=== PATIENT | male | born 1965 | race Caucasian/White ===

== ENCOUNTER 2018-09-09 14:54 | Emergency (ER) | payer BC ==
[2018-09-09 15:18] LABS: Glucose,Whole Blood 139 mg/dL (75-99)
[2018-09-09 15:21] VITALS: RESP 24
[2018-09-09] MEDS ORDERED: SODIUM CHLORIDE 0.9% 1,000 ML IV STA (15:23)
--- NOTE | 2018-09-09 15:27 | ED ---
General Adult HPI - General Chief complaint: Neuro Symptoms/Deficit Stated complaint: Poss cva Time Seen by Provider: 09/09/18 15:13 Source: patient, EMS, RN notes reviewed Mode of arrival: EMS Limitations: no limitations - History of Present Illness Initial comments: Patient is a pleasant 52-year-old male presenting to the emergency department with concerns for speech problems. Patient states he woke up around 7 and was feeling fine at that point. Patient did go to the bathroom and had some difficulty. Patient did have a headache that started after he awoke and has progressively worsened since that time. Headache is moderate at this time. Hal briones has noticed slurred speech over the past several hours. Patient is unclear if he had slurred speech when he woke because he did not talk and then took a nap after that time. Patient feels weak in general and is on clear of any isolated area of weakness. Patient states he does have some tingling, mostly in his face. No history of similar symptoms previously. Patient has known history of hypertension however does not take his blood pressure medications because he cannot swallow a pill and does not like the taste of chewing pills. - Related Data Allergies Allergy/AdvReac Type Severity Reaction Status Date / Time morphine AdvReac Nausea Verified 09/09/18 15:29 Review of Systems ROS Statement: Those systems with pertinent positive or pertinent negative responses have been documented in the HPI. ROS Other: All systems not noted in ROS Statement are negative. Constitutional: Denies: fever Eyes: Denies: eye pain ENT: Denies: ear pain Respiratory: Denies: cough Cardiovascular: Denies: chest pain Endocrine: Reports: fatigue Gastrointestinal: Denies: abdominal pain Genitourinary: Denies: dysuria Musculoskeletal: Denies: back pain Skin: Denies: rash Neurological: Reports: headache, weakness, paresthesias, abnormal gait. Denies: confusion, vertigo Past Medical History Past Medical History: Hypertension History of Any Multi-Drug Resistant Organisms: None Reported Past Surgical History: No Surgical Hx Reported Past Psychological History: Depression Smoking Status: Never smoker Past Alcohol Use History: None Reported Past Drug Use History: None Reported General Exam General appearance: alert, in no apparent distress Head exam: Present: atraumatic Eye exam: Present: normal appearance, PERRL, EOMI, nystagmus ENT exam: Present: normal oropharynx Neck exam: Present: normal inspection Respiratory exam: Present: normal lung sounds bilaterally Cardiovascular Exam: Present: regular rate, normal rhythm Expanded Peripheral pulses: 2+: Radial (R), Radial (L), Dorsalis Pedis (R), Dorsalis Pedis (L) GI/Abdominal exam: Present: soft. Absent: tenderness Extremities exam: Present: normal inspection. Absent: pedal edema, calf tend erness Neurological exam: Present: alert, oriented X3, CN II-XII intact (Horizontal nystagmus is present.) Expanded Neurological exam: Present: protecting the airway, other (Bilateral horizontal nystagmus. Patient denies dizziness during eval. Patient has significant slurred speech.) Patient oriented to: Present: person, place, time Cranial nerves: EOM's Intact: Normal, Facial Sensation: Normal Cerebellar function: Finger to Nose: Normal Sensory exam: Upper Extremity Light Touch: Normal, Lower Extremity Light Touch: Normal Motor strength exam: RUE: 5, LUE: 5, RLE: 4, LLE: 5 Eye Response: (4) open spontaneously Motor Response: (6) obeys commands Verbal Response: (5) oriented Psychiatric exam: Present: normal affect, normal mood Skin exam: Present: normal color Course Vital Signs 09/09/18 09/09/18 09/09/18 15:01 15:25 15:40 Temperature 98.4 F Pulse Rate 65 84 80 Respiratory 24 24 24 Rate Blood Pressure 176/120 187/115 185/125 O2 Sat by Pulse 97 98 96 Oximetry 09/09/18 09/09/18 15:55 16:10 Temperature Pulse Rate 80 80 Respiratory 24 24 Rate Blood Pressure 159/131 168/143 O2 Sat by Pulse 96 94 L Oximetry - Reevaluation(s) Reevaluation #1: 09/09/18 15:50 Case was discussed with Dr. Vivas, interventional neurologist and films were reviewed. He does have concern for brainstem hemorrhage. He does recommend labetalol and Cardene to get systolic blood pressure under 160 and then transfer to [facility]. Patient reevaluated and unchanged. Patient is updated. Friend is also present who is aware. Friend is attempting to get in touch with sister. 09/09/18 15:52 Case was also discussed with Dr. [place], [facility], who will accept transfer. Blood pressure at this time as 192/114. Heart rate 82. First dose labetalol has been ordered. Cardiac will be ordered. 09/09/18 16:17 Patient again reevaluated and again updated. Additional dose of Trandate ordered. Cardene has arrived and is about to be started. EMS was notified. 09/09/18 16:29 Blood pressure now improved to 153/99 EKG Findings - EKG Comments: EKG Findings:: Normal sinus rhythm 85. CT 144. QRS 80. QT 382. QTC 454. Normal axis. Normal QRS. No acute ST change. Medical Decision Making - Lab Data Result diagrams: 09/09/18 15:08 09/09/18 15:08 Lab Results 09/09/18 09/09/18 09/09/18 Range/Units 15:08 15:08 15:08 WBC 9.6 (3.8-10.6) k/uL RBC 5.00 (4.30-5.90) m/uL Hgb 15.4 (13.0-17.5) gm/dL Hct 45.1 (39.0-53.0) % MCV 90.3 (80.0-100.0) fL MCH 30.9 (25.0-35.0) pg MCHC 34.2 (31.0-37.0) g/dL RDW 13.7 (11.5-15.5) % Plt Count 201 (150-450) k/uL Neutrophils % 86 % Lymphocytes % 10 % Monocytes % 3 % Eosinophils % 1 % Basophils % 0 % Neutrophils # 8.2 H (1.3-7.7) k/uL Lymphocytes # 0.9 L (1.0-4.8) k/uL Monocytes # 0.3 (0-1.0) k/uL Eosinophils # 0.1 (0-0.7) k/uL Basophils # 0.0 (0-0.2) k/uL PT (9.0-12.0) sec INR (<1.2) APTT (22.0-30.0) sec Sodium 139 (137-145) mmol/L Potassium 4.8 (3.5-5.1) mmol/L Chloride 107 (98-107) mmol/L Carbon Dioxide 21 L (22-30) mmol/L Anion Gap 11 mmol/L BUN 9 (9-20) mg/dL Creatinine 0.67 (0.66-1.25) mg/dL Est GFR (CKD-EPI)AfAm >90 (>60 ml/min/1.73 sqM) Est GFR (CKD-EPI)NonAf >90 (>60 ml/min/1.73 sqM) Glucose 145 H (74-99) mg/dL POC Glucose (mg/dL) (75-99) mg/dL POC Glu Laboratory Animal Care Veterinarian ID Calcium 9.1 (8.4-10.2) mg/dL Total Bilirubin 1.3 (0.2-1.3) mg/dL AST 87 H (17-59) U/L ALT 22 (21-72) U/L Alkaline Phosphatase 113 (38-126) U/L Total Creatine Kinase 134 (55-170) U/L CK-MB (CK-2) 1.8 (0.0-2.4) ng/mL CK-MB (CK-2) Rel Index 1.3 Troponin I <0.012 (0.000-0.034) ng/mL Total Protein 8.1 (6.3-8.2) g/dL Albumin 4.5 (3.5-5.0) g/dL 09/09/18 09/09/18 Range/Units 15:08 15:16 WBC (3.8-10.6) k/uL RBC (4.30-5.90) m/uL Hgb (13.0-17.5) gm/dL Hct (39.0-53.0) % MCV (80.0-100.0) fL MCH (25.0-35.0) pg MCHC (31.0-37.0) g/dL RDW (11.5-15.5) % Plt Count (150-450) k/uL Neutrophils % % Lymphocytes % % Monocytes % % Eosinophils % % Basophils % % Neutrophils # (1.3-7.7) k/uL Lymphocytes # (1.0-4.8) k/uL Monocytes # (0-1.0) k/uL Eosinophils # (0-0.7) k/uL Basophils # (0-0.2) k/uL PT 9.9 (9.0-12.0) sec INR 0.9 (<1.2) APTT 21.9 L (22.0-30.0) sec Sodium (137-145) mmol/L Potassium (3.5-5.1) mmol/L Chloride (98-107) mmol/L Carbon Dioxide (22-30) mmol/L Anion Gap mmol/L BUN (9-20) mg/dL Creatinine (0.66-1.25) mg/dL Est GFR (CKD-EPI)AfAm (>60 ml/min/1.73 sqM) Est GFR (CKD-EPI)NonAf (>60 ml/min/1.73 sqM) Glucose (74-99) mg/dL POC Glucose (mg/dL) 139 H (75-99) mg/dL POC Glu Laboratory Animal Care Veterinarian ID Roney Colunga Calcium (8.4-10.2) mg/dL Total Bilirubin (0.2-1.3) mg/dL AST (17-59) U/L ALT (21-72) U/L Alkaline Phosphatase (38-126) U/L Total Creatine Kinase (55-170) U/L CK-MB (CK-2) (0.0-2.4) ng/mL CK-MB (CK-2) Rel Index Troponin I (0.000-0.034) ng/mL Total Protein (6.3-8.2) g/dL Albumin (3.5-5.0) g/dL - Radiology Data Radiology results: report reviewed (CT angiogram of the head and neck shows no evidence of aneurysm or embolism. No dissection. Hemorrhage is present.), image reviewed (Computed tomography scan of brain shows hemorrhage of the brain stem. There may be a subarachnoid component. This was discussed with radiologist, Dr. Jimenez. Chest x-ray shows cardiac megaly.) Critical Care Time Critical Care Time: Yes Total Critical Care Time: 55 Disposition Clinical Impression: Brainstem hemorrhage, Hypertensive emergency Disposition: OTHER INSTITUTION NOT DEFINED Condition: Critical Is patient prescribed a controlled substance at d/c from ED?: No Referrals: None,Stated [Primary Care Provider] - 1-2 days Time of Disposition: 16:30 - Out of Hospital Transfer - Req. Specs Out of Hospital Transfer - Requested Specifics: Other Emergency Center
[2018-09-09 15:43] LABS: Basophils % (A) 0 %; Eosinophils # (A) 0.1 k/uL (0-0.7); Eosinophils % (A) 1 %; HCT 45.1 % (39.0-53.0); HGB 15.4 gm/dL (13.0-17.5); Lymphocytes # (A) 0.9 k/uL (1.0-4.8); Lymphocytes % (A) 10 %; MCH 30.9 pg (25.0-35.0); MCHC 34.2 g/dL (31.0-37.0); MCV 90.3 fL (80.0-100.0); Mean Platelet Volume 6.9; Monocytes # (A) 0.3 k/uL (0-1.0); Monocytes % (A) 3 %; Neutrophils # (A) 8.2 k/uL (1.3-7.7); Neutrophils % (A) 86 %; Platelet Count 201 k/uL (150-450); RDW 13.7 % (11.5-15.5); WBC 9.6 k/uL (3.8-10.6)
[2018-09-09 15:52] LABS: ALT 22 U/L (21-72); AST 87 U/L (17-59); African American GFR (CKD) >90 (>60 ml/min/1.73 sqM); Albumin 4.5 g/dL (3.5-5.0); Alkaline Phosphatase 113 U/L (38-126); Anion Gap 11 mmol/L; Blood Urea Nitrogen 9 mg/dL (9-20); Calcium 9.1 mg/dL (8.4-10.2); Carbon Dioxide 21 mmol/L (22-30); Chloride 107 mmol/L (98-107); Glucose 145 mg/dL (74-99); Sodium 139 mmol/L (137-145); Total Bilirubin 1.3 mg/dL (0.2-1.3); Total Protein 8.1 g/dL (6.3-8.2)
[2018-09-09] MEDS ORDERED: niCARdipine 20 MG in SODIUM CHLORIDE 0.9% 192 ML IV ONE (15:53)
[2018-09-09] MEDS ORDERED: levETIRAcetam IV 1,000 MG in SALINE 1 100ML.BAG IVPB STA (15:54)
[2018-09-09 15:59] LABS: Creatine Kinase 134 U/L (55-170)
[2018-09-09] MEDS ORDERED: LABETALOL SYRINGE 5 MG/ML IVP STA ×2 (15:59→16:13)
[2018-09-09 16:01] LABS: Potassium 4.8 mmol/L (3.5-5.1)
[2018-09-09 16:04] LABS: INR 0.9 (<1.2); Partial Thromboplastin Time 21.9 sec (22.0-30.0); Prothrombin Time 9.9 sec (9.0-12.0)
--- NOTE | 2018-09-09 16:04 | CT ---
EXAMINATION TYPE: CT brain wo con for TPA DATE OF EXAM: 09/09/2018 COMPARISON: None HISTORY: Neuro deficits with fall CT DLP: 1449 mGycm Automated exposure control for dose reduction was used. Helical acquisition through the brain. FINDINGS: Abnormal increased attenuation is present involving the left portion of the sarahi, there is some exten karthikeyan towards the cerebellopontine angle, cerebellopontine angle and left internal auditory canal, dilcia roximately 2 cm in AP dimension by 2.5 cm transverse dimension. No evident hydrocephalus. Cerebral va scular calcifications are present. No significant mass effect. Calvarium is intact. IMPRESSION: PARENCHYMAL HEMORRHAGE, THERE MAY BE A LOCAL SUBARACHNOID COMPONENT.
[2018-09-09 16:12] LABS: Creatine Kinase MB 1.8 ng/mL (0.0-2.4); Troponin I <0.012 ng/mL (0.000-0.034)
--- NOTE | 2018-09-09 16:18 | CT ---
EXAMINATION TYPE: CT angio head neck DATE OF EXAM: 09/09/2018 HISTORY: Fall this morning. COMPARISON: CT brain same date CT DLP: 2392.1 mGycm. Automated Exposure Control for Dose Reduction was Utilized. TECHNIQUE: CTA scan of the neck is performed with IV Contrast, patient injected with 50 mL of Isovue 370, axial images are obtained, coronal and sagittal reformatted images are reviewed. Three-D recons tructed images are created on an independent workstation and reviewed. FINDINGS: Carotid/Vascular Structures: Patent common carotid, transverse aorta, left and right subclavian, inte rnal and external carotid arteries, vertebral arteries. No evident embolus or dissection. Mild athero matous change present in the carotid bifurcations. [place] of [place] shows anterior and posterior circulation to be patent. No evident aneurysm or dissec tion. Other: Patient's hemorrhage as described in CT report of the brain same date is noted incidentally IMPRESSION: No evident aneurysm or embolus. No dissection. Hemorrhage as described.
--- NOTE | 2018-09-09 16:24 | XR ---
EXAMINATION TYPE: XR chest 1V portable DATE OF EXAM: 09/09/2018 COMPARISON: NONE HISTORY: Altered mental status, cerebrovascular accident TECHNIQUE: Single frontal view of the chest is obtained. FINDINGS: There is no focal air space opacity, pleural effusion, or pneumothorax seen. The cardiac silhouette size is enlarged. The osseous structures are intact. Patient is rotated. There are overlyi ng cardiac leads. IMPRESSION: Cardiomegaly.
[2018-09-09 16:31] VITALS: TEMP 97.7
[2018-09-09] MEDS ORDERED: METOCLOPRAMIDE 5 MG/ML 2 ML VIAL IVP STA (16:33)
[2018-09-09 16:43] VITALS: BP 127/105; PULSE 80
== END 2018-09-09 16:44 | disposition short-term general hospital (02) ==
LOC: EC 14:54
DX: I61.3 Nontraumatic intracerebral hemorrhage in brain stem (principal); R47.81 Slurred speech; I16.1 Hypertensive emergency; I51.7 Cardiomegaly; Z88.5 Allergy status to narcotic agent
CPT/HCPCS: 36415; 93005; 80053; 82550; 82553; 84484; 85025; 85610; 85730; 71045; 70496; 70450; 70498; 99291; 96365; 96368; 96375 ×2; J2765; J1953; Q9967

== ENCOUNTER 2019-09-22 14:50 | Inpatient (IN) | payer BC, MEDICAID, OTHER ==
[2019-09-22] MEDS ORDERED: SODIUM CHLORIDE 0.9% 1,000 ML IV STA (16:24)
[2019-09-22 16:42] LABS: Basophils # (A) 0.1 k/uL (0-0.2); Basophils % (A) 0 %; Eosinophils # (A) 0.3 k/uL (0-0.7); Eosinophils % (A) 2 %; HCT 46.5 % (39.0-53.0); HGB 15.6 gm/dL (13.0-17.5); Lymphocytes # (A) 1.4 k/uL (1.0-4.8); Lymphocytes % (A) 10 %; MCH 31.3 pg (25.0-35.0); MCHC 33.6 g/dL (31.0-37.0); MCV 93.3 fL (80.0-100.0); Mean Platelet Volume 7.5; Monocytes # (A) 0.8 k/uL (0-1.0); Monocytes % (A) 6 %; Neutrophils # (A) 11.5 k/uL (1.3-7.7); Neutrophils % (A) 81 %; Platelet Count 257 k/uL (150-450); RBC 4.98 m/uL (4.30-5.90); RDW 13.5 % (11.5-15.5); WBC 14.1 k/uL (3.8-10.6)
--- NOTE | 2019-09-22 16:48 | XR ---
EXAMINATION TYPE: XR chest 2V DATE OF EXAM: 09/22/2019 COMPARISON: Chest x-ray September 09, 2018 HISTORY: Weakness and fall. TECHNIQUE: Frontal and lateral views of the chest are obtained. FINDINGS: Osseous structures are demineralized. Advanced degenerative change bilateral glenohumeral joints. Deformity right humeral head. Cardiomegaly is seen with central vascular congestion and small bilateral pleural effusions. No pneumothorax noted bilaterally. Atherosclerotic thoracic aorta noted . IMPRESSION: Correlate for CHF exacerbation as there is cardiomegaly with central vascular congestion and small bilateral pleural effusions.
[2019-09-22 16:51] LABS: Albumin 4.9 g/dL (3.5-5.0); Calcium 9.5 mg/dL (8.4-10.2); Magnesium 2.2 mg/dL (1.6-2.3); Potassium 4.9 mmol/L (3.5-5.1); Total Bilirubin 0.7 mg/dL (0.2-1.3); Total Protein 8.6 g/dL (6.3-8.2)
[2019-09-22 16:53] LABS: Appearance,Urine Cloudy (Clear); Bacteria,Urine Rare /hpf; Bilirubin,Urine Negative (Negative); Blood,Urine Negative (Negative); Color,Urine Yellow; Glucose,Urine (UA) Negative (Negative); Hyaline Casts,Urine 147 /lpf (0-2); Ketones,Urine Negative (Negative); Leukocyte Esterase,Urine Negative (Negative); Mucus,Urine Occasional /hpf; Nitrite,Urine Negative (Negative); Protein,Urine 1+ (Negative); RBC,Urine 2 /hpf (0-5); Specific Gravity,Urine 1.024 (1.001-1.035); Squamous Epithelial Cell,Urine <1 /hpf (0-4); Urobilinogen,Urine <2.0 mg/dL (<2.0); WBC,Urine 2 /hpf (0-5)
[2019-09-22 17:15] LABS: Partial Thromboplastin Time 21.8 sec (22.0-30.0); Prothrombin Time 9.9 sec (9.0-12.0)
[2019-09-22] MEDS: SODIUM CHLORIDE 0.9% 1,000 ML IV SCH (17:55)
[2019-09-22] MEDS ORDERED: NALOXONE 0.4 MG/ML 1 ML VIAL IV PRN (18:08)
[2019-09-22] MEDS ORDERED: ACETAMINOPHEN TAB 325 MG TAB PO PRN (18:08)
--- NOTE | 2019-09-22 18:15 | ED ---
General Adult HPI - General Chief complaint: Weakness Stated complaint: weakness,sore Time Seen by Provider: 09/22/19 16:11 Source: patient, RN notes reviewed, old records reviewed Mode of arrival: ambulatory Limitations: no limitations - History of Present Illness Initial comments: 53-year-old male presenting for evaluation of near-syncope, dehydration. Patient was working in a very hot environment, had been sweating profusely, became lightheaded, pale. He was encouraged by coworkers to present to the emergency department for evaluation. He denies chest pain or dyspnea. Denies nausea vomiting. He has a history of CVA. No history of CAD, or congestive heart failure. No focal numbness or weakness. No headache. - Related Data Home Medications Medication Instructions Recorded Confirmed Atorvastatin [Lipitor] 40 mg PO HS 09/22/19 09/22/19 Baclofen [Lioresal] 10 mg PO HS PRN 09/22/19 09/22/19 Carvedilol [Coreg] 12.5 mg PO BID 09/22/19 09/22/19 Lisinopril [Zestril] 40 mg PO DAILY 09/22/19 09/22/19 Allergies Allergy/AdvReac Type Severity Reaction Status Date / Time morphine AdvReac Nausea Verified 09/22/19 18:00 Review of Systems ROS Statement: Those systems with pertinent positive or pertinent negative responses have been documented in the HPI. ROS Other: All systems not noted in ROS Statement are negative. Past Medical History Past Medical History: CVA/TIA, Hypertension History of Any Multi-Drug Resistant Organisms: None Reported Past Surgical History: No Surgical Hx Reported Past Psychological History: No Psychological Hx Reported Smoking Status: Never smoker Past Alcohol Use History: None Reported Past Drug Use History: None Reported General Exam Limitations: no limitations General appearance: alert, in no apparent distress Head exam: Present: atraumatic, normocephalic Eye exam: Present: normal appearance, EOMI ENT exam: Present: normal exam Neck exam: Present: normal inspection. Absent: tenderness Respiratory exam: Present: normal lung sounds bilaterally. Absent: respiratory distress, wheezes, rales Cardiovascular Exam: Present: regular rate, normal rhythm GI/Abdominal exam: Present: soft. Absent: distended, tenderness, guarding Extremities exam: Present: normal inspection, normal capillary refill. Absent: pedal edema Neurological exam: Present: alert, oriented X3, CN II-XII intact. Absent: motor sensory deficit Psychiatric exam: Present: normal affect, normal mood Skin exam: Present: warm, dry, intact. Absent: cyanosis, diaphoretic Course Vital Signs 09/22/19 09/22/19 09/22/19 15:44 17:00 17:55 Temperature 97.6 F Pulse Rate 76 65 61 Respiratory 18 15 18 Rate Blood Pressure 104/65 115/61 117/75 O2 Sat by Pulse 98 96 98 Oximetry EKG Findings - EKG Comments: EKG Findings:: EKG: Normal sinus rhythm, rate of 71, Q waves in the inferior leads, these were seen on previous EKG in 2019. Similar appearance. DE interval 156, QRS duration 78, QTC Medical Decision Making - Medical Decision Making 53-year-old male presenting for evaluation of near-syncope, dehydration. Patient was working in a very hot environment, had been sweating profusely, became lightheaded, pale. He was encouraged by coworkers to present to the emergency department for evaluation. He denies chest pain or dyspnea. Denies nausea vomiting. He has a history of CVA. No history of CAD, or congestive heart failure. No focal numbness or weakness. No headache. Patient has EKG showing sinus rhythm, no ST segment elevation. He has a mildly elevated white blood cell count of 14. His BUN is elevated at 43 and his creatinine is 2.7 with no history of chronic kidney disease and a baseline creatinine of 1. He has a lactic acid of 2.7 which is suspect is from dehydration. He has a negative troponin. Chest x-ray is concerning for CHF with trace bilateral effusions, cardiomegaly. Given the acute renal failure which I suspect is from dehydration we will be admitted for IV hydration. He is started on 75 mL of normal saline an hour given this x-ray finding and concern for CHF. Echo will be obtained. Patient is breathing room air with no respiratory distress, no complaints of dyspnea. Case discussed with Valorie moses [facility] hospitalist. - Lab Data Result diagrams: 09/22/19 16:27 09/22/19 16:27 Lab Results 09/22/19 09/22/19 09/22/19 Range/Units 16:27 16:27 16:27 WBC 14.1 H (3.8-10.6) k/uL RBC 4.98 (4.30-5.90) m/uL Hgb 15.6 (13.0-17.5) gm/dL Hct 46.5 (39.0-53.0) % MCV 93.3 (80.0-100.0) fL MCH 31.3 (25.0-35.0) pg MCHC 33.6 (31.0-37.0) g/dL RDW 13.5 (11.5-15.5) % Plt Count 257 (150-450) k/uL Neutrophils % 81 % Lymphocytes % 10 % Monocytes % 6 % Eosinophils % 2 % Basophils % 0 % Neutrophils # 11.5 H (1.3-7.7) k/uL Lymphocytes # 1.4 (1.0-4.8) k/uL Monocytes # 0.8 (0-1.0) k/uL Eosinophils # 0.3 (0-0.7) k/uL Basophils # 0.1 (0-0.2) k/uL PT 9.9 (9.0-12.0) sec INR 1.0 (<1.2) APTT 21.8 L (22.0-30.0) sec Sodium (137-145) mmol/L Potassium (3.5-5.1) mmol/L Chloride (98-107) mmol/L Carbon Dioxide (22-30) mmol/L Anion Gap mmol/L BUN (9-20) mg/dL Creatinine (0.66-1.25) mg/dL Est GFR (CKD-EPI)AfAm (>60 ml/min/1.73 sqM) Est GFR (CKD-EPI)NonAf (>60 ml/min/1.73 sqM) Glucose (74-99) mg/dL Plasma Lactic Acid Chalo (0.7-2.0) mmol/L Calcium (8.4-10.2) mg/dL Magnesium (1.6-2.3) mg/dL Total Bilirubin (0.2-1.3) mg/dL AST (17-59) U/L ALT (4-49) U/L Alkaline Phosphatase (38-126) U/L Creatine Kinase (55-170) U/L Troponin I (0.000-0.034) ng/mL Total Protein (6.3-8.2) g/dL Albumin (3.5-5.0) g/dL Urine Color Yellow Urine Appearance Cloudy (Clear) Urine pH 5.0 (5.0-8.0) Ur Specific Lester 1.024 (1.001-1.035) Urine Protein 1+ H (Negative) Urine Glucose (UA) Negative (Negative) Urine Ketones Negative (Negative) Urine Blood Negative (Negative) Urine Nitrite Negative (Negative) Urine Bilirubin Negative (Negative) Urine Urobilinogen <2.0 (<2.0) mg/dL Ur Leukocyte Esterase Negative (Negative) Urine RBC 2 (0-5) /hpf Urine WBC 2 (0-5) /hpf Ur Squamous Epith Cells <1 (0-4) /hpf Urine Bacteria Rare H (None) /hpf Hyaline Casts 147 H (0-2) /lpf Urine Mucus Occasional H (None) /hpf 09/22/19 09/22/19 09/22/19 Range/Units 16:27 16:27 16:27 WBC (3.8-10.6) k/uL RBC (4.30-5.90) m/uL Hgb (13.0-17.5) gm/dL Hct (39.0-53.0) % MCV (80.0-100.0) fL MCH (25.0-35.0) pg MCHC (31.0-37.0) g/dL RDW (11.5-15.5) % Plt Count (150-450) k/uL Neutrophils % % Lymphocytes % % Monocytes % % Eosinophils % % Basophils % % Neutrophils # (1.3-7.7) k/uL Lymphocytes # (1.0-4.8) k/uL Monocytes # (0-1.0) k/uL Eosinophils # (0-0.7) k/uL Basophils # (0-0.2) k/uL PT (9.0-12.0) sec INR (<1.2) APTT (22.0-30.0) sec Sodium 136 L (137-145) mmol/L Potassium 4.9 (3.5-5.1) mmol/L Chloride 102 (98-107) mmol/L Carbon Dioxide 19 L (22-30) mmol/L Anion Gap 15 mmol/L BUN 43 H (9-20) mg/dL Creatinine 2.70 H (0.66-1.25) mg/dL Est GFR (CKD-EPI)AfAm 30 (>60 ml/min/1.73 sqM) Est GFR (CKD-EPI)NonAf 26 (>60 ml/min/1.73 sqM) Glucose 109 H (74-99) mg/dL Plasma Lactic Acid Chalo 2.7 H* (0.7-2.0) mmol/L Calcium 9.5 (8.4-10.2) mg/dL Magnesium 2.2 (1.6-2.3) mg/dL Total Bilirubin 0.7 (0.2-1.3) mg/dL AST 26 (17-59) U/L ALT 22 (4-49) U/L Alkaline Phosphatase 77 (38-126) U/L Creatine Kinase 137 (55-170) U/L Troponin I <0.012 (0.000-0.034) ng/mL Total Protein 8.6 H (6.3-8.2) g/dL Albumin 4.9 (3.5-5.0) g/dL Urine Color Urine Appearance (Clear) Urine pH (5.0-8.0) Ur Specific Lester (1.001-1.035) Urine Protein (Negative) Urine Glucose (UA) (Negative) Urine Ketones (Negative) Urine Blood (Negative) Urine Nitrite (Negative) Urine Bilirubin (Negative) Urine Urobilinogen (<2.0) mg/dL Ur Leukocyte Esterase (Negative) Urine RBC (0-5) /hpf Urine WBC (0-5) /hpf Ur Squamous Epith Cells (0-4) /hpf Urine Bacteria (None) /hpf Hyaline Casts (0-2) /lpf Urine Mucus (None) /hpf Disposition Clinical Impression: Dehydration, Acute renal failure Disposition: ADMITTED IP TO THIS [facility] Condition: Stable Is patient prescribed a controlled substance at d/c from ED?: No Referrals: Macey Burns MD [Primary Care Provider] - 1-2 days Decision to Admit Reason: Admit from EC Decision Date: 09/22/19 Decision Time: 18:38
[2019-09-22] MEDS ORDERED: BACLOFEN 10 MG TAB PO PRN (22:54)
[2019-09-22] MEDS ORDERED: TEMAZEPAM 15 MG CAP PO PRN (23:53)
[2019-09-22] MEDS ORDERED: ALPRAZolam 0.25 MG TAB PO PRN (23:53)
--- NOTE | 2019-09-23 05:20 | HP ---
HISTORY AND PHYSICAL DATE OF SERVICE: 09/22/2019 CHIEF COMPLAINT: Weakness and sweating and near syncope, dehydration. HISTORY OF PRESENT ILLNESS: This 53-year-old gentleman with a past medical history of multiple medical problems including CVA, TIA, hypertension, being followed by Dr. Burns in the outpatient setting apparently working in a very hot environment. When the patient is pushing heavy objects, patient getting very sweaty and discoloration and the patient also complaining of weak, lightheaded, pale and the patient has some slight diarrhea last night and the patient came to [facility] and admitted for evaluation and treatment. On admission, the creatinine was found to be 2.7 and plasma lactic acid 2.7 indicating severe dehydration with hyaline casts demonstrated. Patient admitted for further evaluation. White count was 14.1. A chest x-ray was done in the ER which is reviewed by me showed some apparent to rule out CHF exacerbation, reported CHF exacerbation, but showed some cardiomegaly, increased bronchovascular markings. The patient admitted for further evaluation and treatment. There was no history of fever, rigors or chills. No history of headache, loss of consciousness or seizures. PAST MEDICAL HISTORY: History of CVA, TIA, hypertension. MEDICATIONS: Medications prior to admission: 1. Zestril 40 mg daily. 2. Coreg 12.5 mg b.i.d. 3. Lioresal 10 mg at bedtime p.r.n. 4. Lipitor 40 mg at bedtime. ALLERGIES: MORPHINE. FAMILY HISTORY: Dementia, hypertension. SOCIAL HISTORY: No history of smoking. No history of alcohol intake. REVIEW OF SYSTEMS: ENT: No diminished hearing or diminished vision. CARDIOVASCULAR SYSTEM: As mentioned earlier. RESPIRATORY SYSTEM: As mentioned earlier. GI: As mentioned earlier. : No dysuria. NERVOUS SYSTEM: No numbness or weakness. ALLERGY/IMMUNOLOGY: No history of asthma. MUSCULOSKELETAL: As mentioned earlier. HEMATOLOGY: No history of anemia. ENDOCRINE: No history of diabetes or hypothyroidism. CONSTITUTIONAL: As mentioned earlier. DERMATOLOGY: Negative. RHEUMATOLOGY: Negative. PSYCHIATRY: As mentioned earlier. PHYSICAL EXAMINATION: The patient is alert and oriented x3. Pulse 71, blood pressure 132/82, respiration 18, temperature 97.5, pulse ox 100% on room air. HEENT: Conjunctivae normal. Oral mucosa moist. NECK: No jugular venous distention. No carotid bruit. No lymph node enlargement. CARDIOVASCULAR: S1, S2 muffled. RESPIRATORY: Breath sounds diminished at the bases. A few scattered rhonchi and crackles. ABDOMEN: Soft, obese, nontender. No mass palpable. LEGS: No edema, no swelling. NERVOUS SYSTEM: Higher function as mentioned earlier. Moves all 4 limbs. No focal motor or sensory deficits. LYMPHATICS: No lymphadenopathy of the neck, axillae or groin. SKIN: No ulcer, rash or bleeding. JOINTS: No active deforming arthropathy. LABS: WBC 14.1. Sodium 136, potassium 4.9. Creatinine is 2.70. Plasma lactic acid 2.7. ASSESSMENT: 1. Acute renal failure from dehydration with prerenal acute tubular necrosis. 2. Elevated plasma lactic acid from dehydration. 3. Hyponatremia. 4. Increased WBC, possibly reactive. 5. History of cerebrovascular accident, transient ischemic attack. 6. Hypertension. 7. Cardiomegaly, rule out congestive heart failure on the chest x-ray. 8. FULL CODE. 9. Obesity with body mass index of 43. RECOMMENDATION AND DISCUSSION: This 53-year-old gentleman presented with multiple complex medical issues, we will monitor the patient closely. Continue the current medications. Continues symptomatic treatment. I recommend a 2D echo and BNP also. Otherwise set of troponins will be noted. We will cautiously hydrate the patient. Nephrology will be consulted. Other than that, we will continue to monitor and guarded prognosis because of multiple complex medical issues. Further recommendations to follow. A copy of dictation forwarded to Dr. Burns who is the primary physician. The EKG was done at the time of admission which showed ST-T changes. I would also obtain a cardiology consultation also. MMODL / IJN: [id number] / [facility]ENTERAmaury
[2019-09-23] MEDS: SODIUM CHLORIDE 0.9% 1,000 ML IV SCH ×2 (06:27→11:10)
--- NOTE | 2019-09-23 08:34 | P.NPCON ---
History of Present Illness - Reason for Consult acute renal failure - History of Present Illness Reason for consultation: Acute kidney injury History of present illness: Patient is a 53-year-old male seen in renal consultation for acute kidney injury. Patient's creatinine was 2.7 on admission yesterday. Labs from today are pending. Patient presented to the hospital due to presyncopal episode. Patient states he was pushing equipment with heavy parts and subsequently started sweating and became short of breath. Patient states he was told that his color also changed. He was subsequently brought to the hospital. patient's blood pressure was in the systolic low 100s on admission. He is currently maintained on normal saline at 75 mL an hour. he received 1 L bolus of normal saline on admission as well. He was taking lisinopril at home for blood pressure. He admits to good urine output. No hematuria or dysuria. Denies history of diabetes. Denies use of nonsteroidals. Denies family history of renal disease. No abdominal pain. Oral intake has been good. No chest pain or shortness of breath at this time. Vital signs are stable. General: The patient appeared well nourished and normally developed. HEENT: Head exam is unremarkable. Neck is without jugular venous distension. LUNGS: Lungs are clear to auscultation and percussion. Breath sounds decreased. HEART: Rate and Rhythm are regular. ABDOMEN: soft, nontender. Obese. EXTREMITITES: No clubbing, cyanosis, or edema. Past Medical History Past Medical History: CVA/TIA, Hypertension History of Any Multi-Drug Resistant Organisms: None Reported Past Surgical History: No Surgical Hx Reported Past Anesthesia/Blood Transfusion Reactions: No Reported Reaction Past Psychological History: No Psychological Hx Reported Smoking Status: Never smoker Past Alcohol Use History: None Reported Past Drug Use History: None Reported - Past Family History Father Family Medical History: Dementia, Hypertension Mother Family Medical History: Cancer, Hypertension Medications and Allergies Home Medications Medication Instructions Recorded Confirmed Type Atorvastatin [Lipitor] 40 mg PO HS 09/22/19 09/22/19 History Baclofen [Lioresal] 10 mg PO HS PRN 09/22/19 09/22/19 History Carvedilol [Coreg] 12.5 mg PO BID 09/22/19 09/22/19 History Lisinopril [Zestril] 40 mg PO DAILY 09/22/19 09/22/19 History Allergies Allergy/AdvReac Type Severity Reaction Status Date / Time morphine AdvReac Nausea Verified 09/22/19 18:00 Physical Exam Vitals: Vital Signs Temp Pulse Pulse Resp BP BP Pulse Ox 09/23/19 04:00 97.0 F L 59 L 21 109/52 97 09/23/19 01:00 65 21 97 09/22/19 23:11 72 18 123/70 100 09/22/19 20:27 97.5 F L 71 18 132/82 100 09/22/19 19:00 68 17 137/76 100 09/22/19 18:00 57 L 17 117/75 99 09/22/19 17:55 61 18 117/75 98 09/22/19 17:00 65 15 115/61 96 09/22/19 15:44 97.6 F 76 18 104/65 98 Intake and Output 09/22/19 09/23/19 09/23/19 22:59 06:59 14:59 Other: # Voids 1 Weight 136.078 kg Results - Lab Results Most recent lab results Calcium 9.5 mg/dL (8.4-10.2) 09/22/19 16:27 Magnesium 2.2 mg/dL (1.6-2.3) 09/22/19 16:27 09/22/19 16:27 09/22/19 16:27 Assessment and Plan Plan: Assessment: 1. Acute kidney injury mostly prerenal secondary to hypotension and further worsened with the use of lisinopril. Creatinine 2.7 on admission. Baseline creatinine near 1 from August 2018. 2. Presyncopal episode secondary to hypovolemia and hypotension. 3. Metabolic acidosis secondary to acute kidney injury and lactic acidosis. 4. History of hypertension. Currently controlled. Plan: Maintain normal saline at 75 mL an hour. Follow-up morning labs. Hold Lisinopril. Check renal ultrasound. Continue to monitor renal function and urine output. Follow-up echocardiogram. Thank you for the consultation. I will continue to follow the patient with you during his hospital stay.
[2019-09-23 10:56] LABS: Calcium 8.6 mg/dL (8.4-10.2); Magnesium 2.2 mg/dL (1.6-2.3); Potassium 4.9 mmol/L (3.5-5.1)
--- NOTE | 2019-09-23 11:07 | P.CRDCN ---
History of Present Illness History of present illness: HISTORY OF PRESENTING ILLNESS This is a pleasant 53-year-old male past medical history significant for hypertension, dyslipidemia and morbid obesity. 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 We have been asked to see in consultation for heart failure. He presented to the hospital with symptoms of increased weakness and near syncope. 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 On arrival laboratory data revealed he was quite dehydrated with acute kidney injury. Chest x-ray report being read as central vascular congestion with small bilateral pleural effusions however clinically the patient is quite dry. He denies symptoms of chest pain, shortness of breath or palpitations. EKG reveals sinus mechanism with nonspecific abnormalities in inferior leads and poor R-wave progression. He is not on telemetry. Laboratory data reviewed, WBC 14.1, hemoglobin 15.6, platelets 257, sodium 137, potassium 4.9, creatinine on admission 2. 7 repeat after hydration 1.12, lactic acid on admission 2. 7 repeat after hydration 0.6, magnesium 2.2, cardiac enzymes negative 1 and NT proBNP 27. Current daily cardiac medications include atorvastatin 40 mg at bedtime, carvedilol 12.5 mg twice a day and lisinopril 40 mg daily. He also states he has been taking Motrin quite regularly due to back discomfort. REVIEW OF SYSTEMS At the time of my exam: CONSTITUTIONAL: Denies fever or chills. CARDIOVASCULAR: Denies chest pain, shortness of breath, orthopnea, PND or palpitations. RESPIRATORY: Denies cough. GASTROINTESTINAL: Denies abdominal pain, diarrhea, constipation, nausea or vomiting. MUSCULOSKELETAL: Denies myalgias. NEUROLOGIC: Denies numbness, tingling or weakness. ENDOCRINE: Denies fatigue, weight change, polydipsia or polyurina. GENITOURINARY: Denies burning, hematuria or urgency with micturation. HEMATOLOGIC: Denies history of anemia or bleeding. PHYSICAL EXAMINATION Blood pressure 109/52 heart rate 59 afebrile and maintaining oxygen saturation on room air. CONSTITUTIONAL: No apparent distress. HEENT: Head is normocephalic. Pupils are equal, round. Sclerae anicteric. Mucous membranes of the mouth are moist. No JVD. No carotid bruit. CHEST EXAMINATION: Lungs are clear to auscultation. No chest wall tenderness is noted on palpation or with deep breathing. HEART EXAMINATION: Regular rate and rhythm. S1, S2 heard. No murmurs, gallops or rub. ABDOMEN: Soft, nontender. Positive bowel sounds. EXTREMITIES: 2+ peripheral pulses, no lower extremity edema and no calf tender ness. NEUROLOGIC EXAMINATION: Patient is awake, alert and oriented x3. ASSESSMENT Acute dehydration Leukocytosis Lactic acidosis Acute kidney injury Hypertension Dyslipidemia Morbid obesity, BMI 43 PLAN Clinically the patient is euvolemic. There is no signs to suggest fluid overload in fact he is dehydrated. He states he is feeling better since receiving IV hydration. Recommend ongoing IV hydration and hold lisinopril. Blood pressure is currently well controlled on carvedilol. Echocardiogram has been obtained and will be reviewed. No further cardiac workup at this time. Thank you kindly for this consultation. Nurse Practitioner note has been reviewed, I agree with a documented findings and plan of care. Patient was seen and examined. Past Medical History Past Medical History: CVA/TIA, Hypertension History of Any Multi-Drug Resistant Organisms: None Reported Past Surgical History: No Surgical Hx Reported Past Anesthesia/Blood Transfusion Reactions: No Reported Reaction Past Psychological History: No Psychological Hx Reported Smoking Status: Never smoker Past Alcohol Use History: None Reported Past Drug Use History: None Reported - Past Family History Father Family Medical History: Dementia, Hypertension Mother Family Medical History: Cancer, Hypertension Medications and Allergies Home Medications Medication Instructions Recorded Confirmed Type Atorvastatin [Lipitor] 40 mg PO HS 09/22/19 09/22/19 History Baclofen [Lioresal] 10 mg PO HS PRN 09/22/19 09/22/19 History Carvedilol [Coreg] 12.5 mg PO BID 09/22/19 09/22/19 History Lisinopril [Zestril] 40 mg PO DAILY 09/22/19 09/22/19 History Allergies Allergy/AdvReac Type Severity Reaction Status Date / Time morphine AdvReac Nausea Verified 09/22/19 18:00 Physical Exam Vitals: Vital Signs Temp Pulse Pulse Resp BP BP Pulse Ox 09/23/19 04:00 97.0 F L 59 L 21 109/52 97 09/23/19 01:00 65 21 97 09/22/19 23:11 72 18 123/70 100 09/22/19 20:27 97.5 F L 71 18 132/82 100 09/22/19 19:00 68 17 137/76 100 09/22/19 18:00 57 L 17 117/75 99 09/22/19 17:55 61 18 117/75 98 09/22/19 17:00 65 15 115/61 96 09/22/19 15:44 97.6 F 76 18 104/65 98 Intake and Output 09/22/19 09/23/19 09/23/19 22:59 06:59 14:59 Other: # Voids 1 Weight 136.078 kg Results 09/22/19 16:27 09/23/19 10:19 Cardiac Enzymes 09/22/19 09/22/19 Range/Units 16:27 16:27 AST 26 (17-59) U/L Troponin I <0.012 (0.000-0.034) ng/mL Coagulation 09/22/19 Range/Units 16:27 PT 9.9 (9.0-12.0) sec APTT 21.8 L (22.0-30.0) sec CBC 09/22/19 Range/Units 16:27 WBC 14.1 H (3.8-10.6) k/uL RBC 4.98 (4.30-5.90) m/uL Hgb 15.6 (13.0-17.5) gm/dL Hct 46.5 (39.0-53.0) % Plt Count 257 (150-450) k/uL Comprehensive Metabolic Panel 09/22/19 Range/Units 16:27 Sodium 136 L (137-145) mmol/L Potassium 4.9 (3.5-5.1) mmol/L Chloride 102 (98-107) mmol/L Carbon Dioxide 19 L (22-30) mmol/L BUN 43 H (9-20) mg/dL Creatinine 2.70 H (0.66-1.25) mg/dL Glucose 109 H (74-99) mg/dL Calcium 9.5 (8.4-10.2) mg/dL AST 26 (17-59) U/L ALT 22 (4-49) U/L Alkaline Phosphatase 77 (38-126) U/L Total Protein 8.6 H (6.3-8.2) g/dL Albumin 4.9 (3.5-5.0) g/dL Current Medications Generic Name Dose Route Start Last Admin Trade Name Freq PRN Reason Stop Dose Admin Acetaminophen 650 mg 09/22/19 18:08 Tylenol Tab PO Q6HR PRN Mild Pain or Fever > 100.5 Alprazolam 0.25 mg 09/22/19 23:53 Xanax PO TID PRN Anxiety Atorvastatin Calcium 40 mg 09/23/19 21:00 Lipitor PO HS SHEELA Baclofen 10 mg 09/22/19 22:54 Lioresal PO HS PRN Muscle Spasm Carvedilol 12.5 mg 09/23/19 09:00 Coreg PO BID SHEELA Sodium Chloride 1,000 mls @ 75 mls/hr 09/22/19 17:45 09/23/19 06:27 Saline 0.9% IV 75 mls/hr .[id number] SHEELA Administration Naloxone HCl 0.2 mg 09/22/19 18:08 Narcan IV Q2M PRN Opioid Reversal Pantoprazole Sodium 40 mg 09/23/19 07:30 Protonix PO [id number] SHEELA Temazepam 15 mg 09/22/19 23:53 Restoril PO HS PRN Insomnia Intake and Output 09/22/19 09/23/19 09/23/19 22:59 06:59 14:59 Other: # Voids 1 Weight 136.078 kg 09/22/19 16:27 09/22/19 16:27
[2019-09-23] MEDS: PANTOPRAZOLE 40 MG TABLET PO SCH (11:10)
[2019-09-23 11:15] LABS: Basophils % (A) 1 %; Eosinophils # (A) 0.2 k/uL (0-0.7); Eosinophils % (A) 3 %; HCT 40.2 % (39.0-53.0); HGB 13.5 gm/dL (13.0-17.5); Lymphocytes # (A) 1.2 k/uL (1.0-4.8); Lymphocytes % (A) 18 %; MCH 32.7 pg (25.0-35.0); MCHC 33.5 g/dL (31.0-37.0); MCV 97.6 fL (80.0-100.0); Mean Platelet Volume 7.7; Monocytes # (A) 0.4 k/uL (0-1.0); Monocytes % (A) 6 %; Neutrophils # (A) 4.8 k/uL (1.3-7.7); Neutrophils % (A) 71 %; Platelet Count 168 k/uL (150-450); RBC 4.12 m/uL (4.30-5.90); RDW 13.3 % (11.5-15.5); WBC 6.7 k/uL (3.8-10.6)
[2019-09-23] MEDS: CARVEDILOL 12.5 MG TAB PO SCH ×2 (11:15→20:46)
--- NOTE | 2019-09-23 18:43 | PN ---
PROGRESS NOTE DATE OF SERVICE: 09/23/2019 This 53-year-old gentleman who was admitted with acute renal failure and dehydration with prerenal acute tubular necrosis is being closely monitored. Patient apparently works in a high-temperature environment. IV fluids are continuous. Sodium is 137. Past medical history reviewed. REVIEW OF SYSTEMS: CARDIOVASCULAR SYSTEM: No angina, palpitations. RESPIRATORY SYSTEM: As mentioned earlier. GI: As mentioned earlier. : As mentioned earlier. CURRENT MEDICATIONS: Reviewed. They include: 1. Tylenol 650 q.6. 2. Xanax. 3. Lipitor. 4. Lioresal. 5. Coreg. 6. Narcan. 7. Protonix. 8. Restoril. PHYSICAL EXAMINATION: Alert and oriented x3. Pulse 67, blood pressure 92/48, respiration 16, temperature 98.7, pulse ox 97% on room air. HEENT: Conjunctivae normal. NECK: No jugular venous distention. CARDIOVASCULAR SYSTEM: S1, S2 muffled. RESPIRATORY SYSTEM: Breath sounds diminished at the bases. A few scattered rhonchi. No crackles. ABDOMEN: Soft, non-tender. LEGS: No edema. No swelling. NERVOUS SYSTEM: No focal deficit. LABS: WBC 6.6, hemoglobin 13.4, sodium 137, potassium 4.9. ASSESSMENT: 1. Acute renal failure from dehydration and prerenal acute tubular necrosis. 2. Elevated plasma lactic acid from dehydration. 3. Hyponatremia. 4. Increased white count, possibly reactive. 5. History of cerebrovascular accident, transient ischemic attack. 6. Hypertension. 7. Cardiomegaly. Rule out CHF in the chest x-ray. 8. Obesity with body mass index of 43. 9. FULL CODE. RECOMMENDATIONS AND DISCUSSION: I recommend to continue current medications, continue with the monitoring, symptomatic treatment. Continue with the cautious IV hydration. Repeat labs. Cardiology has been consulted. Nephrology is following the patient closely. I would await the 2D echo with Doppler report. Guarded prognosis because of multiple complex medical issues. Further recommendations to follow. MMODL / IJN: [id number] /
[2019-09-23] MEDS ORDERED: ATORVASTATIN 40 MG TAB PO SCH (21:00)
--- NOTE | 2019-09-24 08:00 | US ---
EXAMINATION TYPE: US kidneys/renal and bladder DATE OF EXAM: 09/24/2019 COMPARISON: NONE CLINICAL HISTORY: ishaan. abn labs EXAM MEASUREMENTS: Right Kidney: 10.5 x 5.5 x 5.5 cm Left Kidney: 10.6 x 5.1 x 6.2 cm Right Kidney: No hydronephrosis or masses seen Left Kidney: No hydronephrosis or masses seen Bladder: distended, anechoic Bilateral Jets seen IMPRESSION: 1. Normal renal ultrasound
[2019-09-24] MEDS: CARVEDILOL 12.5 MG TAB PO SCH (08:14)
[2019-09-24] MEDS: PANTOPRAZOLE 40 MG TABLET PO SCH (08:14)
[2019-09-24] MEDS: SODIUM CHLORIDE 0.9% 1,000 ML IV SCH (08:16)
[2019-09-24 10:24] LABS: Basophils % (A) 1 %; Eosinophils # (A) 0.2 k/uL (0-0.7); Eosinophils % (A) 3 %; HCT 40.7 % (39.0-53.0); HGB 13.7 gm/dL (13.0-17.5); Lymphocytes # (A) 1.4 k/uL (1.0-4.8); Lymphocytes % (A) 22 %; MCH 32.2 pg (25.0-35.0); MCHC 33.7 g/dL (31.0-37.0); MCV 95.5 fL (80.0-100.0); Mean Platelet Volume 7.7; Monocytes # (A) 0.4 k/uL (0-1.0); Monocytes % (A) 5 %; Neutrophils # (A) 4.4 k/uL (1.3-7.7); Neutrophils % (A) 67 %; Platelet Count 180 k/uL (150-450); RBC 4.26 m/uL (4.30-5.90); RDW 13.3 % (11.5-15.5); WBC 6.5 k/uL (3.8-10.6)
[2019-09-24 10:35] LABS: African American GFR (CKD) >90 (>60 ml/min/1.73 sqM); Anion Gap 9 mmol/L; Blood Urea Nitrogen 20 mg/dL (9-20); Calcium 8.7 mg/dL (8.4-10.2); Carbon Dioxide 24 mmol/L (22-30); Chloride 105 mmol/L (98-107); Glucose 135 mg/dL (74-99); Non-African American GFR(CKD) >90 (>60 ml/min/1.73 sqM); Potassium 4.9 mmol/L (3.5-5.1); Sodium 138 mmol/L (137-145)
--- NOTE | 2019-09-24 10:40 | P.PN ---
Subjective Patient is seen in follow-up for acute kidney injury. Renal function is back to baseline. No vomiting or diarrhea. Oral intake is good. Blood pressure controlled. Vital signs are stable. General: The patient appeared well nourished and normally developed. HEENT: Head exam is unremarkable. Neck is without jugular venous distension. LUNGS: Lungs are clear to auscultation and percussion. Breath sounds decreased. HEART: Rate and Rhythm are regular. ABDOMEN: Soft, nontender. Obese. EXTREMITITES: No clubbing, cyanosis, or edema. Objective - Vital Signs Vital signs: Vital Signs Temp 98.3 F 09/24/19 07:00 Pulse 60 09/24/19 07:00 Resp 18 09/24/19 08:15 BP 128/83 09/24/19 07:00 Pulse Ox 98 09/24/19 07:00 Intake & Output 09/23/19 09/24/19 09/24/19 18:59 06:59 18:59 Intake Total 1400 262.5 180 Balance 1400 262.5 180 Intake: Intake, IV Titration 600 262.5 Amount Sodium Chloride 0.9% 1, 600 262.5 000 ml @ 75 mls/hr IV . [id number] SHEELA Rx#:[id number] Oral 800 180 Other: # Voids 2 - Labs CBC & Chem 7: 09/24/19 08:57 09/24/19 08:57 Labs: Abnormal Lab Results - Last 24 Hours (Table) 09/23/19 09/23/19 09/24/19 Range/Units 10:19 10:19 08:57 RBC 4.12 L 4.26 L (4.30-5.90) m/uL Chloride 108 H (98-107) mmol/L Carbon Dioxide 21 L (22-30) mmol/L BUN 31 H (9-20) mg/dL Glucose 118 H (74-99) mg/dL 09/24/19 Range/Units 08:57 RBC (4.30-5.90) m/uL Chloride (98-107) mmol/L Carbon Dioxide (22-30) mmol/L BUN (9-20) mg/dL Glucose 135 H (74-99) mg/dL Assessment and Plan Plan: Assessment: 1. Acute kidney injury mostly prerenal secondary to hypotension and further worsened with the use of lisinopril. Creatinine 2.7 on admission and is down to 0.9 today. No hydronephrosis noted on kidney ultrasound. 2. Presyncopal episode secondary to hypovolemia and hypotension. Improved. 3. Metabolic acidosis secondary to acute kidney injury and lactic acidosis. Better. 4. History of hypertension. Currently controlled. Plan: Hep-Lock IV fluids. Hold antihypertensives. Follow-up echocardiogram.
--- NOTE | 2019-09-24 13:03 | ECHOF ---
Referral Reason:chf? MEASUREMENTS -------- HEIGHT: 177.8 cm WEIGHT: 136.1 kg BP: 109/52 RVIDd: 3.4 cm (< 3.3) IVSd: 1.2 cm (0.6 - 1.1) LVIDd: 4.4 cm (3.9 - 5.3) LVPWd: 1.2 cm (0.6 - 1.1) IVSs: 1.9 cm LVIDs: 2.9 cm LVPWs: 1.6 cm LA Diam: 3.5 cm (2.7 - 3.8) LAESV Index (A-L): 19.57 ml/m Ao Diam: 3.4 cm (2.0 - 3.7) AV Cusp: 2.3 cm (1.5 - 2.6) MV EXCURSION: 20.824 mm (> 18.000) MV EF SLOPE: 51 mm/s (70 - 150) EPSS: 0.6 cm MV E Connor: 0.81 m/s MV DecT: 320 ms MV A Connor: 0.92 m/s MV E/A Ratio: 0.89 FINDINGS -------- Sinus rhythm. This was a technically adequate study. The left ventricular size is normal. There is borderline concentric left ventricular hypertrophy. Overall left ventricular systolic function is normal with, an EF between 60 - 65 %. The right ventricle is mildly enlarged. Normal LA size by volume 22+/-6 ml/m2. The right atrium is normal in size. Interatrial and interventricular septum intact. There is mild aortic valve sclerosis. The mitral valve is normal. The tricuspid valve appears structurally normal. Trace/mild (physiologic) pulmonic regurgitation. The aortic root size is normal. Normal inferior vena cava with normal inspiratory collapse consistent with estimated right atrial pre ssure of 5 mmHg. There is no pericardial effusion. CONCLUSIONS -------- 1. Sinus rhythm. 2. This was a technically adequate study. 3. The left ventricular size is normal. 4. There is borderline concentric left ventricular hypertrophy. 5. Overall left ventricular systolic function is normal with, an EF between 60 - 65 %. 6. The right ventricle is mildly enlarged. 7. Normal LA size by volume 22+/-6 ml/m2. 8. The right atrium is normal in size. 9. Interatrial and interventricular septum intact. 10. There is mild aortic valve sclerosis. 11. The mitral valve is normal. 12. The tricuspid valve appears structurally normal. 13. Trace/mild (physiologic) pulmonic regurgitation. 14. The aortic root size is normal. 15. Normal inferior vena cava with normal inspiratory collapse consistent with estimated right atrial pressure of 5 mmHg. 16. There is no pericardial effusion. CHEMICAL RECLAMATION EQUIPMENT OPERATOR: Marcelle Interiano RDCS
[2019-09-24 14:52] VITALS: BP 133/79; PULSE 65; RESP 16; TEMP 97.7
--- NOTE | 2019-09-25 08:59 | P.DS ---
Providers Date of admission: 09/22/19 18:08 Expected date of discharge: 09/24/19 Attending physician: Chaya De León Consults: 09/22/19 23:51 Consult Physician Routine Consulting Provider: Anish Vegas Consult Reason/Comments: chf Do you want consulting provider notified?: Yes 09/22/19 23:52 Consult Physician Routine Consulting Provider: John Larose Consult Reason/Comments: arf Do you want consulting provider notified?: Yes [facility] care [facility]: Final diagnosis Acute renal failure from dehydration and prerenal acute tubular necrosis Elevated plasma lactic acid level from dehydration Hyponatremia Increased white count, possibly reactive History of CVA, TIA Hypertension Cardiomegaly, Ruled out CHF in the chest xray Obesity with a BMI of 43 Full code Discharge disposition Patient is being discharged in a stable condition with guarded prognosis to home. Patient will follow-up with Dr. Burns upon discharge. Patient will continue to hold blood pressure medication Lisinopril until follow up. Total time taken is greater than 35 minutes. History of present illness This is a 53-year-old male who was recently admitted acute renal failure with dehydration and acute prerenal tubular necrosis and was being closely monitored. Patient was placed on gentle IV hydration and is showing improvement. Patient was evaluated by cardiology as well as nephrology. Patent blood pressure medications will be held and to continue with Coreg. Patient underwent ultrasound of the kidneys showing no hydronephrosis. Patient also underwent echo showing normal LV function with an EF of 60-65%. Patient states he would like to go home today. Currently no reports of chest pain, palpitations, or shortness of breath. Patient is afebrile. No reports of nausea or vomiting and patient is tolerating diet. Guarded prognosis. On exam vital signs are stable. Temp is 98.3F, pulse is 60, respirations are 17, blood pressure 128/83, oxygen saturation is 98% on room air. Cardio S1, S2 are present. Respiratory shows diminished breath sounds bilaterally with no wheezing or rhonchi noted. Abdomen is soft and non-tender. Nervous system shows no focal deficits. Please refer to medication reconciliation sheet for a list of medications. Patient Condition at Discharge: Stable Plan - Discharge Summary Discharge Rx Participant: No New Discharge Prescriptions: Continue Carvedilol [Coreg] 12.5 mg PO BID Baclofen [Lioresal] 10 mg PO HS PRN PRN Reason: Muscle Spasm Atorvastatin [Lipitor] 40 mg PO HS Discontinued Lisinopril [Zestril] 40 mg PO DAILY Discharge Medication List Atorvastatin [Lipitor] 40 mg PO HS 09/22/19 [History] Baclofen [Lioresal] 10 mg PO HS PRN 09/22/19 [History] Carvedilol [Coreg] 12.5 mg PO BID 09/22/19 [History] Follow up Appointment(s)/Referral(s): Macey Burns MD [Primary Care Provider] - 1-2 days (Please call office if you would like to follow up with Dr. Burns) Patient Instructions/Handouts: Dehydration (DC), Acute Kidney Injury (DC) Activity/Diet/Wound Care/Special Instructions: Activity Limited until follow-up Follow up with primary care provider upon discharge Continue current diet Continue to hold blood pressure medications until primary follow-up Discharge Disposition: HOME SELF-CARE
== END 2019-09-24 15:10 | disposition home or self-care (01) | DRG 683 ==
LOC: EC 14:50 → 4SSUR 18:08
PROVIDERS: ADMIT Hospitalist; ATTEND Hospitalist
DX: N17.0 Acute kidney failure with tubular necrosis (principal); Z68.41 Body mass index [BMI] 40.0-44.9, adult; E87.1 Hypo-osmolality and hyponatremia; E87.2 Acidosis; E78.5 Hyperlipidemia, unspecified; E66.01 Morbid (severe) obesity due to excess calories; E86.1 Hypovolemia; E86.0 Dehydration; I11.9 Hypertensive heart disease without heart failure; Z11.59 Encounter for screening for other viral diseases; Z82.49 Family history of ischemic heart disease and other diseases of the circulatory system; Z79.899 Other long term (current) drug therapy; Z88.5 Allergy status to narcotic agent; Z86.73 Personal history of transient ischemic attack (TIA), and cerebral infarction without residual deficits
CPT/HCPCS: 36415; 71046; 76770; 80048; 80053; 81001; 82550; 83605; 83735; 83880; 84484; 85025; 85610; 85730; 93005; 93306; 96360; 96361; 99285

== ENCOUNTER → 2022-01-16 | Outpatient (CLI) | payer MEDICAID ==
[2022-01-16 17:59] LABS: HCT 43.2 % (39.6-50.0); HGB 14.6 g/dL (13.0-17.0); MCH 32.4 pg (27.0-32.0); MCHC 33.8 g/dL (32.0-37.0); MCV 95.8 fL (80.0-97.0); NRBC Per 100 WBC 0 /100 WBCS (0.0-0.0); Platelet Count 171 X 10*3/uL (140-440); RBC 4.51 X 10*6/uL (4.40-5.60); RDW 12.5 % (11.5-14.5); WBC 6.43 X 10*3/uL (4.50-10.00)
[2022-01-16 18:47] LABS: ALT 18 U/L (10-49); AST 22 U/L (14-35); African American GFR (CKD) 111.8 (60.0-200.0); Albumin 4.1 g/dL (3.8-4.9); Albumin/Globulin Ratio 1.41 (1.60-3.17); Alkaline Phosphatase 73 U/L (41-126); BUN/Creat Ratio 10.56 Ratio (12.00-20.00); Blood Urea Nitrogen 9.5 mg/dL (9.0-27.0); Carbon Dioxide 24.3 mmol/L (20.0-27.5); Chloride 103 mmol/L (96-109); Chol/HDL Ratio 5.47 Ratio; Globulin 2.9 g/dL (1.6-3.3); Glucose 110 mg/dL (70-110); LDL Cholesterol,Calculated 83.3 mg/dL (0.0-131.0); Non-African American GFR(CKD) 96.5 (60.0-200.0); Potassium 4.5 mmol/L (3.5-5.5); Sodium 138 mmol/L (135-145)
== END | disposition home or self-care (01) ==
LOC: LABWHC1 10:38
PROVIDERS: ATTEND Family Medicine
DX: Z00.00 Encounter for general adult medical examination without abnormal findings (principal); I10 Essential (primary) hypertension; M54.2 Cervicalgia; R42 Dizziness and giddiness; R78.5 Finding of other psychotropic drug in blood
CPT/HCPCS: 36415; 80053; 80061; 84153; 84443; 85027